=== PATIENT | male | born 1995 | race Caucasian/White ===

== ENCOUNTER 2018-11-25 19:22 | Emergency (ER) | payer OTHER ==
[~2018-11-25] VITALS: Ht 175.3 cm; Wt 81.6 kg
== END 2018-11-25 22:39 | disposition home or self-care (01) ==
LOC: ER 19:22
DX: R50.9 Fever, unspecified (principal)

== ENCOUNTER → 2019-06-02 | Emergency (ER) | payer OTHER ==
[~2019-06-02] VITALS: Ht 175.3 cm; Wt 74.8 kg
[~2019-06-02] MED LIST: LEVSIN/SL0.125 MG PO
== END | disposition home or self-care (01) ==
LOC: ER 22:36
DX: R07.89 Other chest pain (principal)

== ENCOUNTER 2019-10-26 13:20 | Emergency (ER) | payer OTHER ==
[~2019-10-26] VITALS: Ht 175.3 cm; Wt 77.1 kg
[2019-10-26] MEDS ORDERED: TUSNEL LIQUID178 ML PO (18:22)
[2019-10-26] MEDS ORDERED: ZITHROMAX500 MG PO (18:22)
[2019-10-26] MEDS ORDERED: DOLOGEN CAPLET1 EACH PO (18:22)
[2019-10-26] MEDS ORDERED: OSEL75CA PO (18:22)
== END 2019-10-26 17:32 | disposition home or self-care (01) ==
LOC: ER 13:20
DX: J11.1 Influenza due to unidentified influenza virus with other respiratory manifestations (principal); B96.0 Mycoplasma pneumoniae [M. pneumoniae] as the cause of diseases classified elsewhere

== ENCOUNTER 2021-08-03 08:37 | Emergency (ER) | payer OTHER ==
[~2021-08-03] VITALS: Ht 175.3 cm; Wt 86.2 kg
[~2021-08-03 08:37] MED LIST changes: +DOLOGEN CAPLET1 EACH PO; +OSEL75CA PO; +TUSNEL LIQUID178 ML PO; +ZITHROMAX500 MG PO
== END 2021-08-03 09:43 | disposition home or self-care (01) ==
LOC: ER 08:37
DX: M54.2 Cervicalgia (principal)

== ENCOUNTER → 2022-06-01 | Emergency (ER) | payer OTHER ==
[~2022-06-01] VITALS: Ht 175.3 cm; Wt 77.1 kg
[~2022-06-01] MED LIST changes: +VISTARIL25 MG PO
== END | disposition home or self-care (01) ==
LOC: ER 09:11
DX: R42 Dizziness and giddiness (principal); R53.83 Other fatigue; F41.9 Anxiety disorder, unspecified; Z91.041 Radiographic dye allergy status

== ENCOUNTER → 2022-11-02 | Emergency (ER) | payer OTHER ==
[~2022-11-02] VITALS: Ht 175.3 cm; Wt 77.1 kg
== END | disposition left against medical advice (07) ==
LOC: ER 16:26
DX: S61.012A Laceration without foreign body of left thumb without damage to nail, initial encounter (principal); W45.0XXA Nail entering through skin, initial encounter; Y93.9 Activity, unspecified; Y92.89 Other specified places as the place of occurrence of the external cause; Y99.9 Unspecified external cause status; Z88.8 Allergy status to other drugs, medicaments and biological substances

== ENCOUNTER 2022-11-06 18:42 | Emergency (ER) | payer OTHER ==
[~2022-11-06] VITALS: Ht 175.3 cm; Wt 77.1 kg
== END 2022-11-06 20:36 | disposition home or self-care (01) ==
LOC: ER 18:42
DX: L03.012 Cellulitis of left finger (principal); Z91.013 Allergy to seafood; Z91.041 Radiographic dye allergy status

== ENCOUNTER 2024-03-19 12:46 | Emergency (ER) | payer OTHER ==
[~2024-03-19] VITALS: Ht 175.3 cm; Wt 79.4 kg
[2024-03-19] MEDS ORDERED: FAMOTIDINE/PF 20 MG/2 ML VIAL ONE (13:23)
[2024-03-19] MEDS ORDERED: ONDANSETRON HCL 2 MG/ML VIAL ONE (13:23)
[2024-03-19] MEDS ORDERED: ONDANSETRON HCL 2 MG/ML VIAL IV ONE (13:30)
[2024-03-19] MEDS ORDERED: MORPHINE SULFATE 4 MG/ML VIAL IV ONE (13:30)
[2024-03-19] MEDS ORDERED: FAMOtidine 10 MG/ML (4ML VIAL) IV ONE (13:30)
[2024-03-19] MEDS ORDERED: 0.9 % SODIUM CHLORIDE 500 ML IV ONE (13:30)
[2024-03-19 13:46] LABS: HEMATOCRIT 46.2 % (39.0-48.0); HEMOGLOBIN 15.5 g/dL (13-16.00); MEAN CORPUSCULAR HEMOGLOBIN 28.8 pg (27.00-32.0); MEAN CORPUSCULAR HGB CONC 33.4 g/dl (32.0-36.0); PLATELET COUNT 203 K/uL (150-450); RED BLOOD COUNT 5.37 M/uL (4.00-6.00); RED CELL DISTRIBUTION WIDTH 14.3 % (11.5-14.5)
[2024-03-19] MEDS ORDERED: DIPHENHYDRAMINE HCL 50 MG/ML VIAL 1ML ONE (13:53)
[2024-03-19] MEDS ORDERED: METHYLPREDNISOLONE SOD SUCC 40 MG VIAL ONE (13:54)
[2024-03-19] MEDS ORDERED: DIPHENHYDRAMINE HCL 50 MG/ML VIAL 1ML IV ONE (14:00)
[2024-03-19] MEDS ORDERED: METHYLPREDNISOLONE SOD SUCC 40 MG VIAL IV ONE (14:00)
[2024-03-19 14:22] LABS: BILIRUBIN TOTAL 0.45 mg/dL (0.3-1.2); CALCIUM 9.1 mg/dL (8.5-10.1); CREATININE SERUM 0.98 mg/dL (0.70-1.30); GFR 89.81; GLOBULINA 3.6 G/DL (2.4-3.5); POTASSIUM 3.75 mEq/L (3.5-5.1); TOTAL PROTEIN 7.6 gm/dL (6.4-8.2)
[2024-03-19] MEDS ORDERED: NASAL MIST126 ML NASAL (15:49)
[2024-03-19] MEDS ORDERED: PROCTOCORT30 MG RECTAL (15:49)
== END 2024-03-19 15:53 | disposition home or self-care (01) ==
LOC: ER 12:47
PROVIDERS: General Practice
DX: K64.9 Unspecified hemorrhoids (principal); Z91.013 Allergy to seafood; Z91.041 Radiographic dye allergy status

== ENCOUNTER 2024-08-31 12:14 | Emergency (ER) | payer OTHER ==
[~2024-08-31] VITALS: Ht 175.3 cm; Wt 68.0 kg
[~2024-08-31 12:14] MED LIST changes: +NASAL MIST126 ML NASAL; +PROCTOCORT30 MG RECTAL
[2024-08-31] MEDS ORDERED: KETOROLAC TROMETHAMINE 30 MG VIAL IV ONE (13:30)
[2024-08-31] MEDS ORDERED: KETOROLAC TROMETHAMINE 30 MG VIAL ONE (13:35)
[2024-08-31] MEDS ORDERED: BARIUM SULFATE 450 ML ORAL.SUSP PO ONE (13:38)
[2024-08-31 14:01] LABS: HEMATOCRIT 49.4 % (39.0-48.0); HEMOGLOBIN 16.2 g/dL (13-16.00); MEAN CELL VOLUME 87.1 fL (80.0-100.00); MEAN CORPUSCULAR HEMOGLOBIN 28.6 pg (27.00-32.0); MEAN CORPUSCULAR HGB CONC 32.8 g/dl (32.0-36.0); PLATELET COUNT 208 K/uL (150-450); RED BLOOD COUNT 5.67 M/uL (4.00-6.00); RED CELL DISTRIBUTION WIDTH 14.2 % (11.5-14.5)
[2024-08-31 16:17] LABS: URINE APPEARANCE Error; URINE BILIRRUBIN Negative (NEGATIVE); URINE BLOOD Negative; URINE COLOR Yellow; URINE GLUCOSE Negative (NEGATIVE); URINE KETONE Negative (NEGATIVE); URINE LEUKOCYTE Negative; URINE NITRATE Negative; URINE PROTEIN Negative (NEGATIVE); URINE UROBILINOGEN 0.2 E.U./dl
[2024-08-31 16:21] LABS: URINE RBC 6.7 uL (0.0-20.8); URINE WBC 1.8 uL (0.0-23.2)
[2024-08-31 16:26] LABS: URINE BACTERIA 2.4 uL (0.0-1933); URINE CAST 0.14 uL (0.0-1.40); URINE EPITHELIAL CELLS 0.3 uL (0.0-38.8)
[2024-08-31] MEDS ORDERED: PEPCID AC20 MG PO (18:20)
[2024-08-31] MEDS ORDERED: KETO10TA2 PO (18:20)
== END 2024-08-31 18:31 | disposition home or self-care (01) ==
LOC: ER 12:17
PROVIDERS: Emergency Medicine
DX: R10.10 Upper abdominal pain, unspecified (principal); Z88.8 Allergy status to other drugs, medicaments and biological substances

== ENCOUNTER 2024-12-21 21:03 | Emergency (ER) | payer OTHER ==
[~2024-12-21] VITALS: Ht 175.3 cm; Wt 79.4 kg
[~2024-12-21 21:03] MED LIST changes: +KETO10TA2 PO; +PEPCID AC20 MG PO
== END 2024-12-21 22:56 | disposition home or self-care (01) ==
LOC: ER 21:42
DX: N48.89 Other specified disorders of penis (principal); Z91.041 Radiographic dye allergy status